=== PATIENT | male | born 1965 | race Caucasian/White ===

== ENCOUNTER 2019-05-25 10:05 | Outpatient (CLI) | payer OTHER, SELFPAY | END 2019-05-25 10:06 | disposition home or self-care (01) | PROVIDERS: PCP Internal Medicine; Visit Provider Internal Medicine | DX: J44.9 Chronic obstructive pulmonary disease, unspecified (principal) | CPT/HCPCS: 94060; 94726; 94729; 95012 ==

== ENCOUNTER 2021-10-21 09:52 | Outpatient (CLI) | payer MEDICARE, SELFPAY ==
--- NOTE | ~2021-10-21 | CT_ITS ---
EXAMINATION: CT lung screening DATE: 10/21/2021 10:17 INDICATION: Personal history of nicotine dependence, current smoker with 40 pack year history TECHNIQUE: Computed tomography (CT) of the chest was performed without intravenous contrast. The dose -length product (DLP) was 179.65 mGy-cm. Automated exposure control and iterative reconstruction tech [employer] were employed. COMPARISON: 11/30/2018 FINDINGS: There is mild emphysema. Again noted are a few 1 to 2 mm nodules in the right upper lobe. S cattered areas of mucous plugging are noted in the right lower lobe. The lungs are free of focal airs pace opacities. No pleural effusion or pneumothorax. No pathologically enlarged thoracic lymph nodes are identified. The heart size is normal. Calcified coronary artery atherosclerosis is noted. There a re multiple cysts of the liver. There is mild thoracic spondylosis. IMPRESSION: 1. Lung-RADS category 2: Benign appearance or behavior. Continue annual screening with noncontrast lo w-dose chest CT in 12 months. Reviewed, dictated and finalized at location A. IMPRESSION: 1. Lung-RADS category 2: Benign appearance or behavior. Continue annual screeni ng with noncontrast low-dose chest CT in 12 months.
== END 2021-10-21 09:53 | disposition home or self-care (01) ==
LOC: CHSIMG 09:56
PROVIDERS: PCP Internal Medicine; Visit Provider Internal Medicine
DX: Z12.2 Encounter for screening for malignant neoplasm of respiratory organs (principal); Z87.891 Personal history of nicotine dependence
CPT/HCPCS: 71271

== ENCOUNTER 2021-11-14 08:31 | Emergency (ER) | payer MEDICARE, SELFPAY ==
--- NOTE | 2021-11-14 08:52 | ED.ANIMALBIT ---
HPI - Animal Bite General Chief Complaint: Altered Mental Status Stated Complaint: BIT ON HAND BY RACOON Source: patient Mode of arrival: ambulatory Limitations: no limitations History of Present Illness HPI narrative: 56 year old male presents to the Emergency Department with racoon bite to left 2nd finger. Patient had trapped racoon and was going to set free when animal bit his finger. Animal ran off. Patient UTD tetanus. No numbness or tingling at wound. No active bleeding. MD complaint: animal bite Onset (ago): minute(s) Animal: other (racoon) Description of animal: wild animal and appeared well Mechanism: bite (left 2nd finger) Location: other (right 2nd finger) Location - Extremities: Right: hand Pain description: dull Context: provoked (animal trapped) Associated symptoms: none Treatments prior to arrival: wound dressing(s) Related Data Patient tetanus UTD: Yes Home Medications Medication Instructions Recorded Confirmed albuterol sulfate 90 mcg/actuation 1 puff inhalation Q4H PRN sob 08/21/19 11/14/21 aerosol inhaler (ProAir HFA) rosuvastatin 20 mg tablet 20 mg PO DAILY 08/21/19 11/14/21 Allergies Allergy/AdvReac Type Severity Reaction Status Date / Time No Known Allergies Allergy Verified 11/14/21 17:38 Review of Systems Review of Systems: HEENT: no headache, visual changes, runny nose, sore throat, neck pain Chest: no cough, congestion, shortness of breath CV: no chest pain Abd: no nausea, vomiting, diarrhea, constipation Ext: bite to left 2nd finger, no numbness or tingling Neuro: no numbness or tingling All systems reviewed & are unremarkable except as noted in HPI and below Constitutional: Constitutional: Reports as per HPI and Reports no additional constitutional complaints Eyes: Eyes: Reports as per HPI and Reports no additional eye complaints ENT: Reports system reviewed and no additional complaints, except as documented and Denies dizziness Cardiovascular: Cardiovascular: Reports as per HPI, Reports no additional cardiovascular complaints and Denies chest pain Respiratory: Respiratory: Reports as per HPI, Reports no additional respiratory complaints and Denies dyspnea Gastrointestinal: Gastrointestinal: Reports as per HPI, Reports no additional gastrointestinal complaints, Denies nausea and Denies vomiting Genitourinary: Genitourinary: Reports no additional male genitourinary complaints and Reports as per HPI Musculoskeletal: Musculoskeletal: Reports no additional musculoskeletal complaints, Reports as per HPI, Denies arthralgias, Denies joint swelling and Denies muscle cramps Integumentary/Breasts: Skin/Breast: Reports system reviewed and no additional complaints, except as docu Neurologic: Reports system reviewed and no additional complaints, except as documented, Reports as per HPI, Denies dizziness, Denies headache(s), Denies focal weakness, Denies numbness and Denies weakness Psychiatric: Psychiatric: Reports no additional psychiatric complaints and Reports as per HPI Endocrine: Endocrine: Reports no additional endocrine complaints and Reports as per HPI Hematologic/Lymphatic: Hematologic/Lymphatic: Reports no additional hematologic/lymphatic complaints and Reports as per HPI Allergic/Immunologic: Allergic/Immunologic: Reports no additional allergic/immunologic complaints and Reports as per HPI PMFSH Past Medical History Medical History COPD (chronic obstructive pulmonary disease) Hyperlipidemia Social History Social History Smoking status: Current every day smoker Exam Const: General: healthy appearing Nutritional Appearance: well nourished Orientation/consciousness: patient oriented x3 Limitations: no limitations HENMT: Head: normal to inspection Ears: external ears normal General nose exam: Normal external nose present Face and sinus: normal facia
[2021-11-14 09:06] VITALS: BP 143/81; PULSE 94; RESP 20; TEMP 36.4; O2SAT 96
[2021-11-14 09:31] VITALS: BP 138/73; PULSE 88; RESP 20; TEMP 36.6; O2SAT 98
--- NOTE | 2021-11-14 13:10 | PC.NURSE ---
was not able to change chief complaint wrong one was selected pt was here for animal bite
== END 2021-11-14 09:32 | disposition home or self-care (01) ==
PROVIDERS: Emergency Provider Emergency Medicine; PCP Internal Medicine
DX: S61.251A Open bite of left index finger without damage to nail, initial encounter (principal); W55.51XA Bitten by raccoon, initial encounter; J44.9 Chronic obstructive pulmonary disease, unspecified; E78.5 Hyperlipidemia, unspecified; F17.200 Nicotine dependence, unspecified, uncomplicated
CPT/HCPCS: 99283

== ENCOUNTER 2021-11-14 17:28 | Emergency (ER) | payer MEDICARE, SELFPAY ==
--- NOTE | ~2021-11-14 | CT_ITS ---
EXAMINATION: CT brain wo con DATE: 11/14/2021 18:22 INDICATION: Syncope. Headache. TECHNIQUE: Computed tomography (CT) of the head was performed without intravenous contrast. The mA wa s adjusted according to patient size. Iterative reconstruction technique was employed. The dose-lengt h product was 681.00 mGy-cm. COMPARISON: Head CT 03/09/2016 FINDINGS: There is no intracranial hemorrhage, acute infarction, or abnormal intracranial mass lesion . The ventricles are normal in size. There is mild mucosal thickening in the paranasal sinuses. The o rbits are normal. The mastoid air cells are normal. IMPRESSION: 1. Normal brain. Reviewed, dictated and finalized at location A. IMPRESSION: 1. Normal brain.
[2021-11-14 17:31] VITALS: BP 139/83; PULSE 81; RESP 20; TEMP 36.4; O2SAT 96
--- NOTE | 2021-11-14 17:31 | ED.ALLEREA ---
HPI - Allergic Reaction General Chief complaint: Allergic Reaction Stated complaint: vomiting, passing out Source: patient Mode of arrival: ambulatory Limitations: no limitations History of Present Illness HPI narrative: 56 year old male returns to the Emergency Department complaining of possible allergic reaction. Patient was seen here earlier after being bit by raccoon to left 2nd finger. He had trapped raccoon and was releasing when bit. He was discharged with Rx for Augmentin. He took dose and had vomiting. He states he vomited multiple times and passed out. Denies any headache, chest pain, shortness of breath. Denies any tightness in throat or difficulty swallowing. No fever. No diarrhea. Apparently patient went and mowed 3 lawns since being seen in ED. Very hot outside and sweating a lot. MD complaint: allergic reaction Onset (ago): hour(s) Exposure: medication Treatment prior to arrival: none Previous Allergic Reaction History: none Related Data Home Medications Medication Instructions Recorded Confirmed albuterol sulfate 90 mcg/actuation 1 puff inhalation Q4H PRN sob 08/21/19 11/14/21 aerosol inhaler (ProAir HFA) rosuvastatin 20 mg tablet 20 mg PO DAILY 08/21/19 11/14/21 Allergies Allergy/AdvReac Type Severity Reaction Status Date / Time No Known Allergies Allergy Verified 11/14/21 17:38 Review of Systems Review of Systems: All systems reviewed & are unremarkable except as noted in HPI and below Constitutional: Constitutional: Reports as per HPI, Reports no additional constitutional complaints, Denies chills, Denies fatigue, Denies fever(s) and Denies weakness Eyes: Eyes: Reports as per HPI, Reports no additional eye complaints and Denies change in vision ENT: Reports system reviewed and no additional complaints, except as documented, Reports as per HPI, Denies dysphagia, Denies vertigo, Denies dizziness and Denies sore throat Cardiovascular: Cardiovascular: Reports as per HPI, Reports no additional cardiovascular complaints, Denies chest pain and Denies rapid heart rate Respiratory: Respiratory: Reports as per HPI, Reports no additional respiratory complaints and Denies dyspnea Gastrointestinal: Gastrointestinal: Reports as per HPI, Reports no additional gastrointestinal complaints, Denies abdominal pain, Denies diarrhea, Reports nausea and Reports vomiting Genitourinary: Genitourinary: Reports no additional male genitourinary complaints and Reports as per HPI Musculoskeletal: Musculoskeletal: Reports no additional musculoskeletal complaints, Reports as per HPI, Denies arthralgias and Denies joint swelling Comments: no tingling at wound site Integumentary/Breasts: Skin/Breast: Reports system reviewed and no additional complaints, except as docu, Reports as per HPI, Denies pruritus, Denies erythema and Denies rash Neurologic: Reports system reviewed and no additional complaints, except as documented, Reports as per HPI, Denies confusion, Denies vertigo, Denies dizziness, Reports syncope, Denies headache(s), Denies focal weakness, Denies numbness and Denies weakness Psychiatric: Psychiatric: Reports no additional psychiatric complaints and Reports as per HPI Endocrine: Endocrine: Reports no additional endocrine complaints and Reports as per HPI Hematologic/Lymphatic: Hematologic/Lymphatic: Reports no additional hematologic/lymphatic complaints and Reports as per HPI Allergic/Immunologic: Allergic/Immunologic: Reports no additional allergic/immunologic complaints, Reports as per HPI, Denies lip swelling, Denies throat swelling and Denies tongue swelling PMFSH Past Medical History Medical History COPD (chronic obstructive pulmonary disease) Hyperlipidemia Social History Social History Smoking status: Current every day smoker Exam Const: General: healthy appearing Nutritional Appe
--- NOTE | 2021-11-14 17:36 | ECG_ITS ---
Measurements Intervals [place] Rate: 76 P: 62 WA: 154 QRS: 76 QRSD: 133 T: 55 QT: 392 QTc: 442 Interpretive Statements SINUS RHYTHM RIGHT BUNDLE BRANCH BLOCK BASELINE ARTIFACT- I, II, III, AVR, AVL, AVF, V3 ABNORMAL ECG Electronically Signed On 11-14-2021 21:18:50 CDT by Seven Juarez D.O.
[2021-11-14] MEDS: SODIUM CHLORIDE 0.9% IV 1,000 ML 999 ML IV CONT ×2 (17:48→19:23)
[2021-11-14] MEDS: ONDANSETRON INJ 4 MG/2 ML VIAL IV PUSH (17:49)
[2021-11-14 17:53] VITALS: PULSE 77
[2021-11-14 18:08] LABS: Basophils Percent Auto 0.6 % (0.0-1.0); Eosinophils Absolute Auto 0.07 K/mm3 (0.02-0.50); Eosinophils Percent Auto 0.4 % (1.0-6.0); Hemoglobin 16.4 g/dL (14.0-18.0); Immature Granulocyte Absolute 0.09 K/mm3 (0.00-0.00); Immature Granulocyte Percent A 0.5 % (0.0-0.0); Lymphocytes Absolute Auto 1.41 K/mm3 (1.10-4.50); Lymphocytes Percent Auto 8.2 % (18.0-42.0); Mean Corpuscular HGB Conc 34.2 g/dL (32.0-36.0); Mean Corpuscular Hemoglobin 29.9 pg (27.0-31.0); Mean Corpuscular Volume 87.4 fL (78.0-102.0); Mean Platelet Volume 9.5 fl (8.7-11.0); Monocytes Percent Auto 7.5 % (2.0-11.0); Neutrophils Absolute Auto 14.3 K/mm3 (1.7-7.2); Neutrophils Percent Auto 82.8 % (50.0-70.0); Platelet Count Result 337 K/mm3 (150-420); Red Blood Count 5.49 M/mm3 (4.70-6.10); Red Cell Distribution Width 12.4 % (11.6-14.4); White Blood Count 17.2 K/mm3 (4.8-10.8)
[2021-11-14 18:15] VITALS: BP 131/76; BP 134/76; BP 134/77; PULSE 72; PULSE 76; PULSE 78
[2021-11-14 18:39] LABS: Alanine Aminotransferase 45 U/L (16-63); Albumin Level 4.1 g/dL (3.4-5.0); Alkaline Phosphatase 93 U/L (46-116); Anion Gap 10 mmol/L (8-16); Aspartate Amino Transferase 23 U/L (15-37); Bilirubin,Total 0.5 mg/dL (0.00-1.00); Blood Urea Nitrogen 20 mg/dL (7-18); Calcium 9.7 mg/dL (8.5-10.1); Carbon Dioxide 24 mmol/L (21-32); Chloride 105 mmol/L (98-108); Creatine Kinase 184 U/L (39-308); Estimated CRCL calculation 69 ml/min; Estimated Glomerular Filt Rate 60; Glucose 102 mg/dL (70-99); Osmolality Calculated 290 mOsm/kg (285-295); Potassium 3.9 mmol/L (3.5-5.1); Sodium 139 mmol/L (136-145); Total Protein 7.9 g/dL (6.4-8.2); Troponin I 9.3 ng/L (0.00-60.4)
[2021-11-14 18:40] LABS: Add Urine Microscopic? YES; Appearance Urine Clear (Clear); Bilirubin Urine Negative (Negative); Blood Urine Negative (Negative); Color Urine Yellow (Yellow); Glucose Urine UA Negative (Negative); Ketones Urine 2+ (Negative); Leukocyte Esterase Ur Negative LEU/UL (Negative); Nitrate Urine Negative (Negative); Protein Urine Trace (Negative); Urobilinogen Urine 0.2 mg/dL (0.2-1.0); pH Urine 6.5 (5.0-8.0)
[2021-11-14 18:49] LABS: Bacteria Urine Trace /hpf; Mucus Urine Moderate /lpf; RBC Urine 0-2 /hpf (0-2); Squamous Epithelial Cell Urine None seen /hpf (Few); WBC Urine 0-3 /hpf (0-3)
[2021-11-14 19:44] VITALS: PULSE 81
[2021-11-14 19:45] VITALS: BP 142/75; PULSE 77; RESP 16; O2SAT 98
[2021-11-14] MEDS: CLINDAMYCIN HCL 150 MG CAP 300 MG PO (20:58)
[2021-11-14] MEDS: DOXYCYCLINE HYCLATE 100 MG TABLET PO (20:58)
[2021-11-14 21:33] VITALS: BP 154/77; PULSE 87; RESP 18; TEMP 36.3; O2SAT 95
== END 2021-11-14 21:34 | disposition home or self-care (01) ==
PROVIDERS: Emergency Provider Emergency Medicine; PCP Internal Medicine
DX: R11.0 Nausea (principal); J44.9 Chronic obstructive pulmonary disease, unspecified; E78.5 Hyperlipidemia, unspecified; F17.200 Nicotine dependence, unspecified, uncomplicated
CPT/HCPCS: 36415; 70450; 80053; 81001; 82550; 82553; 84484; 85025; 93005; 96361; 96374; 99284; A9270; J2405; J7030

== ENCOUNTER 2022-12-07 07:48 | Outpatient (CLI) | payer MEDICARE, SELFPAY ==
--- NOTE | ~2022-12-07 | CT_ITS ---
EXAMINATION:CT lung screening DATE: 12/07/2022 08:02 INDICATION: Personal history of nicotine dependence. Current smoker with 41 pack year history. TECHNIQUE: Computed tomography (CT) of the chest was performed without intravenous contrast. Automate d exposure control and iterative reconstruction technique were employed. The dose-length product (DLP ) was 172.95 mGy-cm. COMPARISON: Chest CT 10/21/2021 FINDINGS: There is moderate emphysema. There is a stable 3 mm nodule in right upper lobe. No pleural effusion. The heart size is normal. There are coronary artery calcifications. No pericardial effusion . There are cysts in the liver measuring up to 8 mm. There is mild thoracic spondylosis. IMPRESSION: 1. Lung-RADS category 2: Benign appearance or behavior. Continue annual screening with noncontrast lo w-dose chest CT in 12 months. Reviewed, dictated and finalized at location A. IMPRESSION: 1. Lung-RADS category 2: Benign appearance or behavior. Continue annual screeni ng with noncontrast low-dose chest CT in 12 months.
== END 2022-12-07 07:49 | disposition home or self-care (01) ==
LOC: CHSIMG 07:52
PROVIDERS: PCP Internal Medicine; Visit Provider Internal Medicine
DX: Z12.2 Encounter for screening for malignant neoplasm of respiratory organs (principal); Z87.891 Personal history of nicotine dependence
CPT/HCPCS: 71271

== ENCOUNTER 2023-08-23 05:51 | Day surgery (SDC) | payer MEDICARE, SELFPAY ==
[2023-06-30 08:07] VITALS: BMI 31.6
[2023-08-05 13:46] VITALS: BMI 30.7
[2023-08-23 06:11] VITALS: BP 124/88; PULSE 76; RESP 18; TEMP 36.9; O2SAT 97
[2023-08-23] MEDS: LACTATED RINGERS 1,000 ML 150 ML IV CONT (06:20)
--- NOTE | 2023-08-23 07:06 | WPDANESEPPF ---
Anes - Initial Pre Proc Eval Procedure: Operation Date: 08/23/23 07:30 Proposed Procedures p Screening Colonoscopy - Konrad Tavarez DO Date/Time: 08/23/23 07:06 Surgeon: Konrad Tavarez DO Pre Op Diagnosis: Neoplasm Screening Patient Data Age: 58 Gender: M Height: 1.78 m Weight: 93.5 kg Last Vital Signs Temp 36.9 C 08/23/23 06:11 Pulse 76 08/23/23 06:11 Resp 18 08/23/23 06:11 BP 124/88 08/23/23 06:11 Pulse Ox 97 08/23/23 06:11 O2 Del Method Room Air 08/23/23 06:11 Allergies Allergy/AdvReac Type Severity Reaction Status Date / Time No Known Allergies Allergy Verified 08/23/23 06:10 Home Medications Medication Instructions Recorded Confirmed Type fluticasone furoate 200 1 inhalation inhalation QAM #28 ea 08/21/19 08/23/23 Rx mcg-vilanterol 25 mcg/dose inhalation powder (Breo Ellipta) rosuvastatin 20 mg tablet 20 mg PO DAILY 08/21/19 08/23/23 History Patient hx anesthesia problems: none Family hx anesthesia problems: none Results Review: All pre-operative results and documents have been reviewed as part of the pre-operative evaluation. [facility] Past Medical History Medical History COPD (chronic obstructive pulmonary disease) Hyperlipidemia Social History Social History Smoking packs per day: 0.5 Smoking cigarettes per day: 10.0 Years smoked: 20 Smoking pack-years: 10.00 Smoking status: Current every day smoker Tobacco type: cigarettes Alcohol intake: current Alcohol use details: 2 drinks monthly Substance use type: does not use Living arrangements: alone Spiritual care concerns: No Anes - Eval Final PreProcedure Day of Procedure 08/23/23 07:06 Patient weight: overweight Heart: regular rate and rhythm Lungs: clear to auscultation Airway: Mallampati scale class II Neurological: alert and oriented Last oral intake: >/= 8 hours ASA classification: III Emergent: no Anesthetic plan: proceed Anesthesia type and monitoring: general GIVS and standard monitoring Results Review: All pre-operative results and documents have been reviewed as part of the pre-operative evaluation. Informed Consent: The patient's anesthetic plan and its attendant risks and benefits were discussed with the patient/family/POA. Questions were solicited and answers provided to the satisfaction of the patient/family/POA.
--- NOTE | 2023-08-23 07:21 | PM.IMHP ---
H&P: HPI History of Present Illness Date/Time: 08/23/23 07:21 Chief Complaint: Screening for colorectal cancer. Narrative: This is a 58 yo man who presents for colonoscopy. Last done 10 years ago. Denies hematochezia, melena, or fam hx colon cancer. Review of Systems Review of Systems: All systems reviewed & are unremarkable except as noted in HPI and below Constitutional: Constitutional: Denies chills, Denies fever(s), Denies headache(s) and Denies weight loss Eyes: Eyes: Denies change in vision ENT: Denies dizziness, Denies headache(s), Denies neck mass and Denies throat swelling Cardiovascular: Cardiovascular: Denies chest pain, Denies lightheadedness and Denies dyspnea Respiratory: Respiratory: Denies cough, Denies dyspnea and Denies wheezing Gastrointestinal: Gastrointestinal: Denies abdominal pain, Denies change in bowel habits, Denies nausea and Denies vomiting Genitourinary: Genitourinary: Denies hematuria and Denies dysuria Musculoskeletal: Musculoskeletal: Reports as per HPI Integumentary/Breasts: Skin/Breast: Reports as per HPI Neurologic: Denies dizziness and Denies headache(s) Allergic/Immunologic: Allergic/Immunologic: Denies throat swelling and Denies wheezing PMFSH Past Medical History Medical History COPD (chronic obstructive pulmonary disease) Hyperlipidemia Social History Social History Smoking packs per day: 0.5 Smoking cigarettes per day: 10.0 Years smoked: 20 Smoking pack-years: 10.00 Smoking status: Current every day smoker Tobacco type: cigarettes Alcohol intake: current Alcohol use details: 2 drinks monthly Substance use type: does not use Living arrangements: alone Spiritual care concerns: No Meds Home Medications and Allergies Home Medications Medication Instructions Recorded Confirmed Type fluticasone furoate 200 1 inhalation inhalation QAM #28 ea 08/21/19 08/23/23 Rx mcg-vilanterol 25 mcg/dose inhalation powder (Breo Ellipta) rosuvastatin 20 mg tablet 20 mg PO DAILY 08/21/19 08/23/23 History Allergies Allergy/AdvReac Type Severity Reaction Status Date / Time No Known Allergies Allergy Verified 08/23/23 06:10 Vital Signs Vital Signs - 24 hr 08/23/23 06:11 Temperature 36.9 C Pulse Rate 76 Respiratory Rate 18 Blood Pressure 124/88 Pulse Oximetry 97 Oxygen Delivery Room Air Exam Const: General: no acute distress and alert Orientation/consciousness: patient oriented x3 HENMT: Head: normocephalic and atraumatic Ears: hearing grossly normal bilaterally Face/Nose/Sinus: Normal nares present Mouth: Yes Normal oral and palatal mucosa present Eyes: Periorbital: periorbital findings normal Sclera: sclerae normal EOM: EOMs intact bilaterally Neck: Neck: normal visual inspection, no lymphadenopathy and trachea midline Chest: Chest palpation & inspection: normal inspection of the chest Resp: Effort & Inspection: normal respiratory effort Auscultation: clear to auscultation bilaterally Cardio: Jugular venous distension: no JVD Rate: regular rate Rhythm: regular rhythm Heart sounds: S1 normal heart sound present and S2 normal heart sound present Peripheral pulses: Peripheral pulses 2+ throughout GI: Inspection: normal to inspection GI Palp: Yes Soft to palpation, No Tenderness to palpation present (GI), No Guarding due to palpation present (GI) and No Rebound tenderness present Percussion: Yes normal to percussion Auscultation: normal bowel sounds : General: Yes no CVA tenderness Back/Spine/Pelvis: Back: no CVA tenderness Neuro: General: patient oriented x3, no focal motor deficits and CN's II-XI intact bilaterally Cognition (Neuro): normal cognition Speech: normal speech Motor exam (neuro): 5/5 motor strength present throughout Extrem: General: capillary refill normal and no clubbing, cyanosi
[2023-08-23 08:05] VITALS: BP 107/76; PULSE 77; RESP 20; O2SAT 96
[2023-08-23 08:15] VITALS: BP 110/66; PULSE 67; RESP 16; O2SAT 97
[2023-08-23 08:25] VITALS: BP 117/64; PULSE 60; RESP 14; O2SAT 99
--- NOTE | 2023-08-23 10:35 | WPDANESPN ---
Anes - Prog Note Post-Op Date/Time: 08/23/23 10:35 Cardiovascular status: normal Respiratory status: normal Airway patency: baseline Mental status: baseline Post-Op hydration status: normal Vital Signs: Last Vital Signs Temp 36.9 C 08/23/23 06:11 Pulse 60 08/23/23 08:25 Resp 14 08/23/23 08:25 BP 117/64 08/23/23 08:25 Pulse Ox 99 08/23/23 08:25 O2 Del Method Room Air 08/23/23 08:25 Pain Score (VAS): 0 I/O: Intake & Output 08/22/23 08/23/23 08/23/23 23:59 07:59 15:59 Intake Total 700 100 Balance 700 100 Post-procedural complaints: none Patient Feedback: Patient satisfied with anesthetic care. Other Findings: Patient vital signs back to baseline. Patient denies nausea and vomiting. Patient's pain under control. Patient OK for discharge.
== END 2023-08-23 08:35 | disposition home or self-care (01) ==
PROVIDERS: PCP Internal Medicine; Visit Provider Surgery
PROC: 0DJD8ZZ Inspection of Lower Intestinal Tract, Via Natural or Artificial Opening Endoscopic (ICD-10-PCS; CPT 45378; principal; 2023-08-23 07:30)
DX: Z12.11 Encounter for screening for malignant neoplasm of colon (principal); D12.5 Benign neoplasm of sigmoid colon; K57.30 Diverticulosis of large intestine without perforation or abscess without bleeding
CPT/HCPCS: 45385

== ENCOUNTER 2023-08-23 07:00 | Outpatient (NON) | payer MEDICARE, SELFPAY | END 2023-08-23 07:01 | disposition home or self-care (01) | LOC: ANHLAB 08-24 07:30 | PROVIDERS: PCP Internal Medicine; Visit Provider Surgery | DX: Z12.11 Encounter for screening for malignant neoplasm of colon (principal); Z12.12 Encounter for screening for malignant neoplasm of rectum; D12.5 Benign neoplasm of sigmoid colon; K63.5 Polyp of colon | CPT/HCPCS: 88305 ==

== ENCOUNTER 2024-11-16 07:28 | Outpatient (CLI) | payer MEDICARE, SELFPAY ==
--- NOTE | ~2024-11-16 | CT_ITS ---
EXAMINATION: CT lung screening DATE: 11/16/2024 07:45 INDICATION: Personal history of nicotine dependence/SOB/HX OF COPD TECHNIQUE: Computed tomography (CT) of the chest was performed without intravenous contrast. Addition al 3D reconstructions utilizing coronal maximum intensity projection (MIP) were performed. Automated exposure control and iterative reconstruction technique were employed. The dose-length product was 42 3.20 mGy-cm. COMPARISON: 12/07/2022 FINDINGS: Mild emphysema. Unchanged 3 mm right upper lobe nodule on series 4, image 39. No new or enlarging pul monary nodules, pneumonia, pulmonary edema or pleural effusion. Heart size is normal. Aortic valve op acification. No pericardial effusion. Thoracic aorta is normal in caliber. No pathologically enlarged thoracic lymphadenopathy. The visualized upper abdomen is unremarkable. Mild thoracic spondylosis. IMPRESSION: 1. Lung-RADS category 2: Benign appearance or behavior. Continue annual screening with noncontrast lo w-dose chest CT in 12 months. Reviewed, dictated and finalized at location A. IMPRESSION: 1. Lung-RADS category 2: Benign appearance or behavior. Continue annual screeni ng with noncontrast low-dose chest CT in 12 months.
--- NOTE | ~2024-11-16 | US_ITS ---
EXAMINATION: US aorta [facility] DATE: 11/16/2024 9:28 CDT INDICATION: Screening for aneurysm. Obesity. History of smoking. High cholesterol. TECHNIQUE: Grayscale, color Doppler, and pulsed Doppler images of the aorta and common iliac arteries were obtained. COMPARISON: None. FINDINGS: The proximal aorta measures 1.9 cm greatest sagittal dimension. The mid aorta measures 1.9 cm greates t sagittal dimension. The distal aorta measures 1.5 cm greatest sagittal dimension. Iliac arteries ar e not visualized. IMPRESSION: 1. Normal caliber aorta without aneurysm. Reviewed, dictated and finalized at location A.
--- NOTE | ~2024-11-16 | US_ITS ---
EXAMINATION: US carotid duplex BI DATE: 11/16/2024 08:07 INDICATION: Carotid bruits TECHNIQUE: Grayscale, color Doppler, and pulsed Doppler images of the cervical carotid arteries were obtained. The degree of vessel stenosis is placed in one of the following categories: normal, <50%, 5 0-69%, >=70% but less than near-occlusion, near-occlusion, or total occlusion. Note that percent sten osis relative to normal distal artery lumen diameter is indirectly measured from velocity measurement s as described by Niko, et al. Radiology 2003; [id number]:340-346. Notes: Normal: Peak systolic velocity <125 centimeters/sec and no plaque <50%. Peak systolic velocity <125 ( EDV <40; ICA/CCA PSV ratio <2.0; used these factors only a tandem lesions or low cardiac output or co ntralateral disease) 50-69 %: PSV 125-230 (EDV 40-100; ratio 2-4) >= 70% but less than near occlusion: PSV greater than 230 (EDV > 100; ratio> 4.0) Near Occlusion: PSV that is variable; markedly narrowed lumen Occlusion: Absent flow on color/spectral Doppler and no lumen on aranda scale. COMPARISON: None. FINDINGS: RIGHT: The right common carotid artery (CCA) peak systolic velocity (PSV) is 97 cm/s. The right internal car otid artery (ICA) PSV is 94 cm/s. The right ICA end-diastolic velocity (EDV) is 33 cm/s. The right IC A/CCA PSV ratio is 0.97. The external carotid artery (ECA) PSV is 115 cm/s. There is antegrade flow i n the right vertebral artery. LEFT: The left CCA PSV is 92 cm/s. The left ICA PSV is 91 cm/s. The left ICA EDV is 27 cm/s. The left ICA/C CA PSV ratio is 1.0. The ECA PSV is 144 cm/s. There is antegrade flow in the left vertebral artery. IMPRESSION: 1. Less than 50% stenosis in the right internal carotid artery by sonographic criteria. 2. Less than 50% stenosis in the left internal carotid artery by sonographic criteria. Reviewed, dictated and finalized at location A. IMPRESSION: 1. Less than 50% stenosis in the right internal carotid artery by sonographic marianna brennan. 2. Less than 50% stenosis in the left internal carotid artery by sonographic sole ya.
--- OUTSIDE RECORDS SUMMARY | 2024-11-16 07:32 | XMS_ITS | Clinical Summary ---
Author Organization [facility] Address [facility] [place] [address] Care Team Providers Care Size Maker Name Role Phone Melissa Gipson APRN, NP-C Unavailable Johan Haddad MD Primary Care Provider [phone] Allergies Active Allergy Reactions Criticality Noted Date Comments Amoxicillin Vomiting 11/17/2021 Medications Fluticasone-Ume clidin-Vilant (TRELEGY ELLIPTA) 100-62.5-25 MCG/INH AEROSOL POWDER, BREATH ACTIVATED Inhale 1 puff into the lungs daily. Active clindamycin (CLEOCIN) 300 MG capsule Take 300 mg by mouth every 6 (six) hours. Active doxycycline hyclate EC 100 MG Tab EC tablet Take 1 tablet by mouth every 12 (twelve) hours. on an empty stomach Active Active Problems Problem Noted Date Diagnosed Date Pre-syncope 09/26/2018 COPD (chronic obstructive pu lmonary disease) ([facility]) GERD (gastroesophageal reflux disease) Hyperlipidemia Immunizations Immunization Administration Dates Next Due Rabies ([place]) 12/01/2021,11/20/2021,11/18/19 22 Family History Medical History Relation Comments anxiety Brother atrial fibrillation Brother atrial flutter Brother av block Brother bi v pacemaker Brother cardiomyopathy Brother hypercholesterolemia Brother hypothyroidism Brother Cancer Father Open Heart Father Relation Status Comments Brother Alive Father Maternal Grandfather Maternal Grandmother Mother Alive Paternal Grandfather Paternal Grandmother Social History Tobacco Use Types Packs/Day Years Used Date Smoking Tobacco: Every Day Cigarettes 1 40 Smokeless Tobacco: Never Alcohol Use Standard Drinks/Week Comments Yes 0 (1 standard drink = 0.6 oz pur e alcohol) rarely AUDIT-C Answer Date Recorded Frequency of Alcohol Consumption Not on file 09/26/2018 Average Number of Drinks Not on file 019 Frequency of Binge Drinking Less than monthly Sex and Gender Information Value Date Recorded Sex Assigned at Not on file 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 Gender Identity Not on file Sexual Orientation Not on file Last Filed Vital Signs Vital Sign Reading Time Taken Comments Blood Pressure 153/89 11/17/2021 9:24 AM CDT Pulse 74 11/17/2021 9:24 AM CDT Temperature 37 C (98.6 F) 11/17/2021 9:24 AM CDT Respiratory Rate 16 11/17/2021 9:24 AM CDT Oxygen Saturation 98% 11/17/2021 9:24 AM CDT Inhaled Oxygen Concentration - - Weight 90.7 kg (200 lb) 11/20/2021 10:02 AM CDT Height 177.8 cm (5' 10) 11/20/2021 10:02 AM CDT Body Mass Index 28.7 11/20/2021 10:02 AM CDT Plan of Treatment Health Maintenance Due Date Last Done Comments Colorectal Cancer Screening Colonoscopy (10 Years) 1963 Annual Physical 1966 Hepatitis C 1981 DTaP, Tdap and Td Vaccines ( 1 - Tdap) 1982 Pneumococcal Vaccine: 50+ Ye ars (1 of 2 - PCV) 1982 Zoster Vaccines (1 of 2) 2013 RSV Immunization or 60+ Years (1 - Risk 60-74 years 1-dose series) 2023 COVID-19 Vaccine ( - 2023-2 5 season) 2023 Meningococcal B Vaccine Aged Out No l onger eligible based on patient's age to complete this topic Meningococcal Vaccine Aged Out No dion stanley eligible based on patient's age to complete this topic RSV Immunizations Under 20 Months Aged Out No longer eligible based on patient's age to complete this [place] [address] MEDICARE Care Teams Size Maker Relationship Specialty Start Date End Date Johan Haddad MD [address] [place] [id number] PCP - General INTERNAL MEDICINE 10/06/18 Melissa Gipson APRN, MATERIAL CONTROL SUPERVISOR-C [address] [phone] NURSE PRACTITIONER 09/26/18
--- OUTSIDE RECORDS SUMMARY | 2024-11-16 07:32 | XMS_ITS | Patient Health Record ---
Author Organization [facility] Address [address] [place] [address] Care Team Providers Care Web Site Specialist Name Role Phone Shweta Lu Unavailable [phone] Reason For Referral No Information Medications Medication SIG (Take, Route, Frequency, Duration) Notes Start Date End Date Status Rosuvastatin Calcium 20 MG Oral 04/23/2023 Active Trelegy Ellipta 100-62.5-25 mcg Inhalation *Pick strength-form from [employer] for eRX* 04/23/2023 Active Escitalopram Oxalate 10 MG Oral 04/23/2023 Active Plan Of Treatment No Information Insurance Providers Payer Name Payer Address Payer Phone Subscriber Number Group Number Insured Name Patient Relationship to Insured Coverage Start Date Coverage End Date [employer] [address] [facility] [place] [phone] [id number] BRIAN ANDREW Self - patient is the insured
== END 2024-11-16 07:29 | disposition home or self-care (01) ==
LOC: CHSIMG 07:30
PROVIDERS: PCP Internal Medicine; Visit Provider Internal Medicine
DX: Z12.2 Encounter for screening for malignant neoplasm of respiratory organs (principal); Z13.6 Encounter for screening for cardiovascular disorders; R09.89 Other specified symptoms and signs involving the circulatory and respiratory systems; Z87.891 Personal history of nicotine dependence; I65.23 Occlusion and stenosis of bilateral carotid arteries
CPT/HCPCS: 71271; 76706; 93880